=== PATIENT | male | born 1985 | race Two or more races ===

== ENCOUNTER 2020-05-17 16:54 | Emergency (ER) | payer OTHER ==
[~2020-05-17] VITALS: Ht 175.3 cm; Wt 68.0 kg
[~2020-05-17 16:54] MED LIST: IBUPROFEN600 MG ORAL
[2020-05-17 17:53] VITALS: BP 130/80
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
[2020-05-17] MEDS ORDERED: IBUPROFEN600 M1 ORAL (18:17)
[2020-05-17 18:30] VITALS: BP 132/80
--- NOTE | 2020-05-17 18:30 | NUR ---
ER DISCHARGE NOTE: Patient is cleared to be discharged per ERMD, pt is aox4, on room air, with stable vital signs. pt was given dc and prescription instructions, pt was able to verbalize understanding, pt id band removed without complications. pt is able to ambulate with steady gait. pt took all belongings.
== END 2020-05-17 18:30 | disposition home or self-care (01) ==
LOC: EMR 17:30
DX: S06.0X0A Concussion without loss of consciousness, initial encounter (principal); S13.4XXA Sprain of ligaments of cervical spine, initial encounter; V43.52XA Car driver injured in collision with other type car in traffic accident, initial encounter; Y92.411 Interstate highway as the place of occurrence of the external cause
CPT/HCPCS: 99282